=== PATIENT | female | born 1995 | race Caucasian/White ===

== ENCOUNTER 2021-12-05 08:29 | Emergency (ER) | payer MEDICAID, SELFPAY ==
[2021-12-05 08:31] VITALS: BP 134/106; PULSE 106; RESP 16; TEMP 36.1; O2SAT 100; BMI 19.5
--- NOTE | 2021-12-05 08:44 | EDS_ITS ---
HPI HPI - GI History of Present Illness Chief Complaint: Diarrhea Informant: patient Narrative Narrative: Patient is a 26-year-old female that denies any significant past medical history presenting via EMS for vomiting and diarrhea. Patient started having symptoms at 10 PM last night, approximately 10 hours ago. She states she had multiple episodes of simultaneous vomiting, diarrhea and cramping abdominal pain. She is continued to have multiple episodes of vomiting. She states she is vomiting up just stomach acid at this point. Denies any blood in her vomit or her stool. Has had chills but denies any fever. No sick contacts. Denies any foods that she thinks could have caused food poisoning. Never had a thing like this before. Denies any history of any abdominal surgeries. No other complaints at this time. Tried to drink water but threw it up again. States she feels very dehydrated and weak. Has a 5-month old at home. Is not currently breast-feeding. Last menstrual period was last week and she is not concerned for . [facility] Medical History Asthma Home Medications ondansetron 4 mg PO Q6H PRN #20 tab 12/05/21 [Rx Last Taken Unknown] Allergy/AdvReac Type Severity Reaction Status Date / Time Sulfa (Sulfonamide Allergy Hives Verified 12/05/21 08:30 Antibiotics) Social History Smoking Status: Unknown if ever smoked ROS ROS ED Constitutional Constitutional ED: Reports chills and sweats; Denies fever(s) ENT ENT ED: Denies rhinorrhea or sore throat Cardiovascular Cardiovascular: Denies chest pain or palpitations Respiratory/Chest Respiratory/Chest: Denies cough or dyspnea Gastrointestinal Gastrointestinal: Reports abdominal pain, diarrhea, nausea and vomiting Genitourinary Genitourinary ED: Denies dysuria or hematuria Musculoskeletal Musculoskeletal: Denies arthralgias or myalgias Integumentary Denies rash Neurologic Neurologic: Reports weakness; Denies headache(s) or paresthesias Psychiatric Psychiatric: Denies anxiety or depression EXAM Physical Exam Const Vital Signs: 12/05/21 08:31 Temperature 97.0 F L Temperature Source Temporal Pulse Rate 106 H Respiratory Rate 16 Blood Pressure 134/106 H Blood Pressure Mean 115 Pulse Ox 100 Oxygen Delivery Method Room Air Positive well nourished and well developed General Appearance ED: well developed HEENT Reports moist mucous membranes normocephalic and atraumatic Eyes PERRL and EOMs intact bilaterally Neck supple and no JVD Resp normal respiratory effort and clear to auscultation bilaterally Cardio regular rate, regular rhythm and no murmurs GI non-tender and non-distended Auscultation: normoactive bowel sounds Palpation: soft; Negative for tender, guarding or rigid Extremity full ROM General Extremety ED: Negative for edema or tenderness General Extremity: Negative for edema Neuro moves all extremities Sensorium / Orientation: alert Motor Exam: Negative for general weakness Psych mental status grossly normal Skin Lesions: no lesions Rashes: no rashes MDM MDM MDM Narrative Medical decision making narrative: Patient evaluated for 10 hours of vomiting and diarrhea. She is mildly tachycardic. Is given a bolus of IV fluids, IV Zofran and Toradol for symptom control. Will check basic labs. Abdomen is soft nontender and unless patient has significant laboratory abnormalities I do not think abdominal imaging is indicated. Differential includes gastroenteritis and infectious diarrhea. She is not having a fever and has a benign physical exam. Lab work is largely unremarkable. Urine is negative. Patient has improvement with Zofran, Toradol and fluids. Is able to tolerate cecilio kaden. Will be discharged home with a prescription for Zofran. Counseled on return precautions. She verbalizes agreement understand this plan. Lab Data Labs: Laboratory Results - last 24 hr 12/05/21 12/05/21 12/05/21 08:40 08:45 08:45 WBC 8.3 RBC 5.00 Hgb 15.6 H Hct 44.2 MCV 88.4 MCH 31.2 MCHC 35.3 RDW Std Deviation 36.8 RDW Coeff of Ariadna 11.5 L Plt Count 237 MPV 9.7 Immature Gran % (Auto) 0.200 Neut % (Auto) 92.5 H Lymph % (Auto) 3.3 L Mckean % (Auto) 3.7 Eos % (Auto) 0.1 Baso % (Auto) 0.2 Absolute Neuts (auto) 7.7 Absolute Lymphs (auto) 0.27 L Nucleated RBC % 0 Differential Comment SCANNED Sodium 136 Potassium 3.8 Chloride 104 Carbon Dioxide 21.0 Anion Gap 11 BUN 25 H Creatinine 0.99 Estim Creat Clear Calc 65.35 Est GFR (MDRD) Af Amer 86 Est GFR (MDRD) Non-Af 71 BUN/Creatinine Ratio 25.4 H Glucose 124 H Calcium 9.7 Total Bilirubin 1.50 H AST 16 ALT 19 Alkaline Phosphatase 87 Total Protein 8.5 H Albumin 4.9 Globulin 3.6 Albumin/Globulin Ratio 1.4 Lipase 71 L Serum , Qual NEGATIVE Discharge Plan Triage Chief Complaint: Diarrhea ED Provider: Leilani Gaona Dx/Rx/DC Orders Clinical Impression: Vomiting and diarrhea, Dehydration Instructions: ED Vomiting and Diarrhea ... Prescriptions: New ondansetron 4 mg tablet,disintegrating 4 mg PO Q6H PRN (Reason: nausea and vomiting) Qty: 20 RF: 0 Primary Care Provider: Care Physician,No Primary Referrals: Vita Ponce [NON-STAFF] - Care Physician,No Primary [Primary Care Provider] - Disposition Disposition: Home, Self Care
[2021-12-05] MEDS: 0.9% Normal Saline 1,000 ML 1000 ML IV (08:49)
[2021-12-05] MEDS: Ondansetron 4 MG/2 ML Vial IV (08:49)
[2021-12-05] MEDS: Ketorolac 15 MG/ML Vial IV (08:50)
[2021-12-05 08:55] LABS: Absolute Lymphocyte Count 0.27 X10^3/uL (0.83-4.51); Absolute Neutrophil Count 7.7 X10^3/uL (2.0-7.7); Basophil# 0.02 X10^3/uL; Basophil% 0.2 % (0-1); Eosinophil# 0.01 X10^3/uL; Eosinophils% 0.1 % (0-5); Hematocrit 44.2 % (37-47); Hemoglobin 15.6 g/dL (12.0-15.0); Lymphocyte # 0.27 X10^3/ul (0.83-4.51); Lymphocyte % 3.3 % (19-41); Mean Corp Hgb Conc 35.3 g/dL (32-36); Mean Corpuscular Hgb 31.2 pg (27.0-32.0); Mean Corpuscular Volume 88.4 fL (81-99); Mean Platelet Vol. 9.7 fl (6.2-12.0); Monocyte# 0.31 X10^3/uL; Monocyte% 3.7 % (0-10); NRBC Flagged by Analyzer 0 % (0-5); Neutrophil # 7.65 X10^3/uL (2.7-7.7); Neutrophil % 92.5 % (47-70); POSITIVE DIFFERENTIAL YES; Platelet Count 237 K/mm3 (150-450); RBC Distribution Width CV 11.5 % (11.6-14.6); RBC Distribution Width SD 36.8 fl (35.1-43.9); White Blood Count 8.3 K/mm3 (4.4-11.0)
[2021-12-05 08:56] LABS: Differential Indicated SCAN CRITERIA MET
[2021-12-05 09:09] LABS: ALB/GLOB Ratio 1.4 RATIO (0.9-2.4); AST(SGOT) 16 U/L (15-37); Alanine Aminotransfer ALT/SGPT 19 U/L (13-56); Albumin, Serum 4.9 g/dL (3.2-5.0); Alkaline Phosphatase 87 U/L (45-117); Anion Gap 11 (5-15); BUN 25 mg/dL (7-18); BUN/Creat Ratio 25.4 RATIO (10-20); Calcium,Total 9.7 mg/dL (8.5-10.1); Chloride 104 mmol/L (98-107); Creatinine, Serum 0.99 mg/dL (0.55-1.02); EST Glomerular Filtration Rate 71 mL/min (>60); Est Glom Filt Rate - Afr Amer 86 mL/min (>60); Estimated Creatinine Clearance 65.35 ml/min; Globulin 3.6 g/dL (2.2-4.2); Glucose 124 mg/dL (74-106); Lipase 71 U/L (73-393); Potassium 3.8 mmol/L (3.5-5.1); Protein, Total 8.5 g/dL (6.4-8.2); Sodium Level 136 mmol/L (136-145)
[2021-12-05 09:18] LABS: Differential Comment SCANNED
[2021-12-05 10:16] LABS: Internal QC Validated? YES +Cl - CLEAR BKGD; Pregnancy, Serum, hCG Quali. NEGATIVE Negative
[2021-12-05 10:32] VITALS: PULSE 94; RESP 16; O2SAT 100
== END 2021-12-05 10:33 | disposition home or self-care (01) ==
PROVIDERS: Emergency Provider Emergency Medicine; Visit Provider Emergency Medicine
DX: R11.10 Vomiting, unspecified (principal); R19.7 Diarrhea, unspecified; E86.0 Dehydration
CPT/HCPCS: 80053; 83690; 84703; 85025; 96361; 96374; 96375; 99283; A4216; J2405